=== PATIENT | female | born 1970 | race Caucasian/White ===

== ENCOUNTER → 2020-03-05 14:20 | Outpatient (BNVA) | payer OTHER, SELFPAY | PROVIDERS: Family Provider Family Medicine; Visit Provider Obstetrics & Gynecology | DX: N92.4 Excessive bleeding in the premenopausal period (principal) | CPT/HCPCS: 84443; 85027 ==

== ENCOUNTER 2020-03-30 09:36 | Outpatient (CLI) | payer OTHER, SELFPAY ==
--- NOTE | 2020-03-30 09:43 | MM_ITS ---
WS: [id number] BILATERAL DIGITAL SCREENING MAMMOGRAPHY WITH CAD CLINICAL INFORMATION: SCREENING HISTORY: Screening mammogram. No current complaints. COMPARISON: TECHNIQUE: Bilateral CC and MLO views. FINDINGS: Scattered fibroglandular densities bilaterally. No suspicious focal mass, asymmetry, calcifications, or architectural distortion. No evidence of malignancy. MM/[place] [id number] IMPRESSION: BI-RADS: 1-Negative FOLLOW UP: 1 Year Follow-up Recommend return to annual screening mammography.
== END 2020-03-30 09:37 | disposition home or self-care (01) ==
LOC: RADSHAW 09:40
PROVIDERS: PCP Family Medicine; Visit Provider Family Medicine
DX: Z12.31 Encounter for screening mammogram for malignant neoplasm of breast (principal)
CPT/HCPCS: 77067

== ENCOUNTER → 2020-04-07 13:21 | Outpatient (BNVA) | payer OTHER, SELFPAY | PROVIDERS: PCP Family Medicine; Visit Provider Obstetrics & Gynecology | DX: N92.1 Excessive and frequent menstruation with irregular cycle (principal) | CPT/HCPCS: 76830; 88305 ==

== ENCOUNTER → 2020-04-29 11:28 | Outpatient (BNVA) | payer OTHER, SELFPAY | PROVIDERS: PCP Family Medicine; Visit Provider Internal Medicine | DX: Z11.59 Encounter for screening for other viral diseases (principal) | CPT/HCPCS: 87635 ==

== ENCOUNTER 2020-05-04 08:09 | Day surgery (SDC) | payer OTHER, SELFPAY ==
[2020-04-29 09:27] VITALS: BMI 32.8
--- NOTE | 2020-04-29 09:46 | ANES.PREANE2 ---
Pre-Anesthetic Assessment Pre-Anesthetic Assessment: Height/Weight: Height 1.63 m Weight 86.636 kg Preop Diagnosis: perimenopausal menorrhagia Proposed Procedure: Operation Date: 05/04/20 07:30 Proposed Procedures p Hysteroscopic endometrial ablation with Novasure paracervical block 18576 [id number] N92.4(Not Applicable) - Roger Jimenez MD Familial anesthetic complications: PONV Social: Social History: No alcohol and No tobacco Exam: Pre-Anes Outpt Exam: alert, oriented x 3, clear to auscultation bilaterally and regular rate & rhythm Airway: Cervical ROM: WNL (fusions) MP: 3 Dentition: Full CV/HEM: CV/HEM: HTN (? has been high at her doctor's offices in the last month) Musc/skel: Comments: shoulder (R) pain Anesthetic Plan: ASA status: 1 Anesthesia: MAC Risk of > 500 ml blood loss (7ml/kg in children): No PFSH Anesthesia PFSH: Medical History Hyperlipidemia Hypercholesterolemia Surgical History History of appendectomy (~1979) Age 10 History of arthroscopy of left knee (~06/2005) Lateral release of left knee History of arthroscopy of left knee (~08/2001) History of bilateral tubal ligation (~04/13/09) LTF, lysis of adhesions. Performed by Dr. Jimenez at [facility] in [place], [place]. History of neck surgery (05/04/06) C5-C6 ACDFF. Performed by Dr. Jolly Steele. History of neck surgery (08/02/09) C3-C4 ACDFF. Performed by Dr. Zapata at [facility] in [place], [place] History of neck surgery (07/29/18) Removal of prior C3-C4 and C5-C6 plate and screw fixation hardware. Performed by Dr. Zapata in [place], [place] History of radial keratotomy (~1992) Of the eye History of repair of left rotator cuff (07/27/16) Performed by Dr. Zafar History of repair of right rotator cuff (~05/2005) History of shoulder surgery (~2016) Arthroscopy left shoulder, Anterior capsule labral repair, Biceps tenotomy, Open distal clavicle excision Hx of LASIK (~2002) Family History Mother Diabetes Social History Smoking and tobacco status: former smoker Quit status (tobacco): has quit using tobacco Alcohol intake: never Substance/Drug Use: never Data Anesthesia Cardiac Studies: No Data to Display
[2020-04-29 11:33] LABS: Basophils % 0.4 %; Eosinophils % 0.5 %; Hematocrit 40.5 % (37.0-47.0); Hemoglobin 13.6 g/dL (11.5-15.3); Lymphocytes # 1.6 10^3/uL (0.8-4.8); Mean Corpuscular HGB Conc 33.6 g/dL (30.0-36.0); Mean Corpuscular Hemoglobin 31.8 pg (28.0-34.0); Mean Corpuscular Volume 94.6 fL (81-99); Mean Platelet Volume 11.3 fL (7.4-10.4); Monocytes # 0.5 10^3/uL (0.2-0.9); Neutrophils # 6.05 10^3/uL (1.8-7.7); Nucleated Red Blood Cells % 0 %; Platelet Count 230 10^3/cmm (130-400); Red Blood Count 4.28 10^6/uL (4.1-5.3); Red Cell Distribution Width 14.1 % (12.1-15.1); White Blood Count 8.2 10^3/uL (4.0-10.0)
[2020-05-04 08:38] VITALS: PULSE 62; RESP 18; TEMP 36.6; O2SAT 99
[2020-05-04 08:38] LABS: OR HCG Qualitative Urine Negative (Negative)
[2020-05-04] MEDS: sodium chloride 0.9% 1,000 ML 30 ML IV (08:57)
[2020-05-04] MEDS: ketorolac 30 mg/mL INJ IVP (08:58)
[2020-05-04] MEDS: scopolamine 1.5 Patch 1 PATCH TRANSDERMA (09:04)
--- NOTE | 2020-05-04 09:14 | P.HPUD_ITS ---
Surgery/Procedure H&P Update DATE OF PROCEDURE: May 04, 2020 DATE H&P PERFORMED: 04/29/20 H&P UPDATE INFORMATION: I have reviewed H&P completed within last 30 days, I have examined patient prior to procedure, No changes to prior documentation and H&P is in [facility] EMR on date indicated PREOP DIAGNOSIS: perimenopausal menorrhagia PLANNED PROCEDURE: Operation Date: 05/04/20 09:45 Proposed Procedures p Hysteroscopic endometrial ablation with Novasure paracervical block 60987 [id number] N92.4(Not Applicable) - Roger Jimenez MD
--- NOTE | 2020-05-04 09:44 | P.ANESUD_ITS ---
Pre-Anesthetic Update Pre-Anesthetic Assessment: Date of Surgery/Procedure: 05/04/20 Preop Sherron gnosis: perimenopausal menorrhagia Proposed Procedure: Operation Date: 05/04/20 09:45 Proposed Procedures p Hysteroscopic endometrial ablation with Novasure paracervical block 37614 [id number] N92.4(Not Applicable) - Roger Jimenez MD Any changes to Pre-Anesthetic Assessment?: No Last Intake: Intake Last Liquid Date 05/03/20 Last Liquid Time 21:00 Last Solid Date 05/03/20 Last Solid Time 21:00 Labs Last 48hrs: Laboratory Results - last 48 hr 05/04/20 08:32 Urine HCG, Qual Negative Vitals: Temperature 97.8 F 05/04/20 08:38 Temperature Source Temporal Artery S can 05/04/20 08:38 Pulse Rate 62 05/04/20 08:38 Pulse Rhythm 05/04/20 08:38 Pulse Strength 3+ Normal 05/04/20 08:38 Respiratory Rate 18 05/04/20 08:38 Pulse Oximetry 99 05/04/20 08:38 Oxygen Delivery Me thod 05/04/20 08:38 Exam: Pre-Anes Outpt Exam: alert, oriented x 3, clear to auscultation bilaterally and regular rate & rhythm Cardiac Studies: No Data to Display
--- NOTE | 2020-05-04 11:02 | P.OP_ITS ---
Operative Report Date of procedure: May 04, 2020 Pre-op Diagnosis: perimenopausal menorrhagia Post-op Diagnosis: Perimenopausal menorrhagia Procedure Done: Hysteroscopy with endometrial ablation with NovaSure, Paracervical block Specimens removed/disposition: None Surgeon: Roger Jimenez Signs Cleaner: None Anesthesia: MAC and Other (Paracervical block) Estimated blood loss (mL): 5 IV fluids (mL): 100 Complications: None Findings: Second degree uterine prolapse under anesthesia. Normal-appearing endometrial cavity. No polyps or submucosal masses noted. Brief History: Patient is a 49-year-old white female 3, para 1-0-2-1 who presented to the office on 03/05/2020 complaining of heavy prolonged cycles. 3 she reports cycles are occurring monthly and that she will bleed up to 10 days with 7 days being heavy. During the heaviest time she changes overnight pads every 3-4 hours and reports having clots. Cramping varies in severity. She has started skipping cycles, but has only missed 2 cycles in the last 6 months. She had an ultrasound performed which was suggestive of uterine fibroids. Hysteroscopy in the office showed no abnormal endometrial cavity with no masses noted. Pathology was negative. Due to the heavy bleeding at the perimenopausal t [facility] other treatment options were discussed and she wished to proceed with endometrial ablation. Procedure: The patient was taken to the operating room where IV sedation was started. She was prepped and draped in the usual sterile fashion in the dorsal supine position with legs in Fahad style stirrups. Sequential compression boots had been placed prior to starting the case. Patient had voided just before coming to the operating room. Exam under anesthesia was performed and the patient was noted to have second- degree uterine prolapse. A weighted speculum was placed in the vagina and the cervix was grasped with a single-tooth tenaculum. A paracervical block was performed with a total of 12 mL of 2% lidocaine with epinephrine used. The cervix was serially dilated until a operative hysteroscope could be passed. Crystalloid solution was used as a distention media. The endometrial cavity was inspected and appeared normal. Using the NovaSure sound, endometrial cavity length was measured at 4.5 cm. The NovaSure device was inserted and device was deployed. The device was moved up and down and left and right until no further with adjustment occurred. Uterine width was measured at 2.7 cm. Settings were entered in the NovaSure machine and wattage was set at 67 [place]. Cavity integrity check was performed and integrity confirmed. Device was then activated. Total treatment time was 66 seconds. Device was removed. The tenaculum was removed and there was minimal bleeding from the tenaculum site. Patient tolerated the procedure well. Sponge and needle counts were correct. DRAINS: None POSTOPERATIVE STATUS: The patient was transferred to the recovery room in satisfactory condition DISPOSITION: Discharge to home when criteria was met. FOLLOWUP APPOINTMENT: Followup appointment had been scheduled on 05/21/2020 in my office. MEDICATIONS: Tylenol #3, 1 to 2 tablets every 6 hours as needed for pain, #10, 0 refill May use [id number] ibuprofen and Tylenol as needed.
[2020-05-04 11:11] VITALS: BP 102/58; PULSE 68; RESP 16; TEMP 36.4; O2SAT 98
[2020-05-04 11:41] VITALS: BP 122/71; PULSE 71; RESP 16; O2SAT 95
--- NOTE | 2020-05-04 12:10 | ANE.PACU2 ---
Inpatient post-anesthesia follow up: Airway intact: Yes Vital signs: Temperature 97.5 F Pulse Rate 71 Respiratory Rate 16 Blood Pressure 122/71 Pulse Oximetry 95 Oxygen Delivery Me thod Room Air Oxygen Flow Rate Fraction of Inspir ed Oxygen Hydration adequate: Yes Nausea and vomiting: No Pain level: 1 Mental status: Baseline
== END 2020-05-04 12:15 | disposition home or self-care (01) ==
PROVIDERS: PCP Family Medicine; Visit Provider Obstetrics & Gynecology
PROC: 0U598ZZ Destruction of Uterus, Via Natural or Artificial Opening Endoscopic (ICD-10-PCS; CPT 58563; principal; 2020-05-04 09:45)
DX: N95.0 Postmenopausal bleeding (principal); I10 Essential (primary) hypertension; E78.5 Hyperlipidemia, unspecified; Z87.891 Personal history of nicotine dependence
CPT/HCPCS: 58563; 12345; 84703; 85025; 96374; J1885; J2250; J2704; J3010; J7030